=== PATIENT | male | born 1995 | race Caucasian/White ===

== ENCOUNTER 2024-08-19 09:04 | Emergency (ER) | payer SELFPAY ==
[2024-08-19 09:07] VITALS: BP 132/83
[2024-08-19] MEDS: TYLENOL 1000 MG PO (10:11)
[2024-08-19] MEDS: ZOFRAN ODT (ORALLY DISINTEGRATING) 4 MG PO (10:11)
--- NOTE | 2024-08-19 10:13 | ED.GENMED ---
History of Present Illness
General
Chief Complaint: Head Injury
Time Seen by Provider: 08/19/24 09:18
History of Present Illness
History of Present Illness:
The patient is a 29-year-old male who presented to the emergency department after experiencing a fall in the shower this morning. The patient reports slipping on conditioner, resulting in a backward fall where his head struck the wall and his neck
hit the edge of the tub. Since the incident, the patient has developed a headache and neck pain. The headache is also associated with sensitivity to light and sound. There is no history of previous concussions. He reports aching pain radiating
bilaterally down his arms to the wrists, although it is not described as numbness or tingling. The patient denies any back pain. The patient is able to move his neck without tenderness along the midline, but reports that lateral neck pain and spasms
are increasingly uncomfortable.
Phy Exam
Physical Exam
Physical Exam:
GENERAL: no acute distress
HEENT: atraumatic, extraocular muscles intact, no signs of entrapment, dentition intact, no other obvious trauma
NECK: no midline tenderness, normal range of motion, left-sided paracervical tenderness NEXUS criteria negative, no other obvious trauma
BACK: no midline tenderness, no other obvious trauma
CHEST: no tenderness, no flail segment, no subcutaneous emphysema, no other obvious trauma
LUNGS: clear to auscultation bilaterally
CARDIOVASCULAR: regular rate and rhythm
ABDOMEN: soft, non-tender, no masses, no other obvious trauma
PELVIS: stable, no obvious injury
EXTREMITIES: moving all extremities, distal pulses intact, no other obvious trauma
NEUROLOGIC: awake, alert x 3, no focal deficits
Course
Orders/Labs/Results
Orders:
Orders
08/19/24 09:12
CT Head W/o Iv Contrast Urgent
Comment:
Reason For Exam: fall/head strike
08/19/24 10:05
Acetaminophen [Tylenol] 1,000 mg PO NOW STA
Ondansetron Orally Disint [Zofran Odt (Orally Disintegrating)] 4 mg PO NOW STA
Vital Signs
Initial and Last Documented VS:
Initial Vital Signs
Temp Pulse Resp BP Pulse Ox
98.4 F 98 18 132/83 98
08/19/24 09:07 08/19/24 09:07 08/19/24 09:07 08/19/24 09:07 08/19/24 09:07
Last Documented Vital Signs
Temp Pulse Resp BP Pulse Ox
98.4 F 98 18 132/83 98
08/19/24 09:07 08/19/24 09:07 08/19/24 09:07 08/19/24 09:07 08/19/24 09:07
MDM/Problems Addressed
Differential Diagnosis Includes:
21-year-old man presenting to the emergency department after a fall with head strike. Vitals unremarkable exam does show tenderness to the left paracervical spinal muscles. Differential consist of concussion versus cervical sprain versus traumatic
brain injury. History and exam less likely to suggest fracture of the cervical vertebra. CT scan of the head ordered prior to my evaluation. Will pain control. Will give antiemetics as well.
*Critical Care Note
Total Time (30-74mins, 75-104mins- exclusive of procedures): Not Applicable
Update Note
Update Note:
CT scan negative for any acute normality. On reassessment patient significantly better. Will give Motrin. Will give prescription for Flexeril. Patient advised to not work given the possible sedating side effects with the Flexeril. Will
discharge this time with strict return precautions.
ED Attending Note
-
Portions of this chart may have been created with voice recognition software.� Occasional wrong word or��sound alike� substitutions may have occurred due to the inherent limitations of voice recognition software.
Discharge Plan
Departure
Referrals:
UNKNOWN - PT DOES,NOT KNOW [Family Provider]
Interventions
Interventions:
*Risk Screen - Suicide Last Done: 08/19/24 09:07
*General Assessment Last Done: 08/19/24 09:11
*Neglect/Abuse Screening Last Done: 08/19/24 09:07
*ED COVID-19 Vaccine History Last Done: 08/19/24 09:07
ED- Neurological Assessment Last Done: 08/19/24 09:38
ED-Skin Assessment Last Done: 08/19/24 09:38
Discharge Date and Time
Print Language: SCOTTISH
[2024-08-19] MEDS: MOTRIN 800 MG PO (11:39)
== END 2024-08-19 11:44 | disposition home or self-care (01) ==
LOC: EMR 09:04
PROVIDERS: EMERGENCY PHYSICIAN Student in an Organized Health Care Education/Training Program
DX: S09.90XA Unspecified injury of head, initial encounter (principal); W18.2XXA Fall in (into) shower or empty bathtub, initial encounter
CPT/HCPCS: 99284; 70450

== ENCOUNTER 2024-11-01 11:47 | Emergency (ER) | payer BC, SELFPAY ==
[2024-11-01 11:49] VITALS: BP 127/84
--- NOTE | 2024-11-01 12:32 | ED.GENMED ---
History of Present Illness
General
Chief Complaint: Headache
Source: patient
Exam Limitations: none
Time Seen by Provider: 11/01/24 12:08
Nursing documentation reviewed up to this point in time: agreed with
History of Present Illness
History of Present Illness:
Patient is a healthy 29-year-old male who presents to the emergency department for evaluation of headache. Patient reports constant left-sided headache since . He noticed a dull headache on morning when he woke up which
progressively worsened throughout the day. Describes pain throughout his entire left side of his head radiating down into his left neck. It has woken him up from sleep multiple times over the past few days. He reports photophobia however denies
any fever, diplopia, dizziness/lightheadedness. No URI symptoms including cough or sore throat. No recent falls or trauma. No recent bug bites or rashes.
Patient been taking Tylenol and Motrin at home with minimal relief in symptoms.
Given persistence of headache and no history of similar�patient presents to the emergency department further evaluation.
Review of Systems
Review of Systems
Allergies reviewed?: Yes
All Other Systems: ROS reviewed and negative except as documented in HPI and ROS
Phy Exam
Physical Exam
Physical Exam:
Vitals: Patient's vital signs are stable. Afebrile
General: Patient is uncomfortable appearing with eyes closed on initial evaluation.
Skin: Warm and dry, no rashes or lesions
Head: Normocephalic, atraumatic
Eyes: Sclera nonicteric. EOMs intact. Pupils equal round reactive to light bilaterally. No nystagmus.
Throat: Protecting airway
Neck: Normal ROM, no cervical spine tenderness, no meningismus
Cardiac: Regular rate and rhythm, no murmurs.
Pulm: Normal respiratory effort, no wheezes, rales, rhonchi heard on exam
.
Abdomen: No abdominal tenderness.
Extremities: No evidence of cyanosis or edema. Strength 5/5 in bilateral upper and lower extremities with normal sensation
Neuro: AAOx3. CN II-XII grossly intact. No facial droop or asymmetry. Steady gait. Normal finger-nose. No focal neurologic deficits.
Psychiatric: Normal affect.
Course
Orders/Labs/Results
Orders:
Orders
11/01/24 12:23
CT Head W/o Iv Contrast Urgent
Comment:
Reason For Exam: headache
0.9% Sodium Chloride 1000 ml [Nss] 1,000 ml IV BOLUS
Diphenhydramine [Benadryl] 25 mg IV NOW STA
Ketorolac [Toradol] 15 mg IV NOW STA
Metoclopramide [Reglan] 10 mg IV NOW STA
11/01/24 12:45
COVID-19 Antigen Urgent
Source: Nasal Swab
Complete Blood Count/With Diff Urgent
Comprehensive Metabolic Panel Urgent
11/01/24 15:27
Acetaminophen [Tylenol] 650 mg PO NOW STA
11/01/24 12:45
11/01/24 12:45
Vital Signs
Initial and Last Documented VS:
Initial Vital Signs
Temp Pulse Resp BP Pulse Ox
98.8 F 92 17 127/84 99
11/01/24 11:49 11/01/24 11:49 11/01/24 11:49 11/01/24 11:49 11/01/24 11:49
Last Documented Vital Signs
Temp Pulse Resp BP Pulse Ox
98.8 F 92 17 127/84 99
11/01/24 11:49 11/01/24 11:49 11/01/24 11:49 11/01/24 11:49 11/01/24 12:32
MDM/Problems Addressed
Differential Diagnosis Includes:
Not limited to: Tension headache, migraine headache, sinusitis, cluster headache, viral illness, acute dehydration, intracranial mass, etc.
MDM/Problems Addressed:
29 year-old male presenting with three days of persistent left-sided headache associated w/ photophobia. No vomiting, fever, URI symptoms. No history of recent trauma. No history of similar headaches. Vitals and physical exam as above. Patient
appears uncomfortable due to pain however, is neurologically intact w/ normal cerebellar exam.
Differential broad. Symptoms do seem consistent with migraine headache. Other considerations include tension headache, viral illness, dehydration, etc. Less likely intracerebral hemorrhage or intracranial mass.
Will check labs, viral studies, give migraine cocktail. Shared decision-making utilized with patient regarding CT scan. After discussion, will proceed with CT scan, given severity and persistence of headache.
Update: Labs without clinically significant abnormalities. Viral studies negative. On reassessment � patient does have significant improvement in symptoms following migraine cocktail and IV fluids. CT pending.
Update: CT without acute findings. Patient states headache/neck pain are essentially gone. He appears much more comfortable in comparison to arrival to ED.
No evidence of intracranial emergency. Ultimately do suspect migraine headache. He has very minimal lingering dull pain will give Tylenol however feel stable for discharge home with outpatient management and primary care follow-up. Return
precautions discussed. Patient comfortable with plan.
Chronic conditions affecting care:
N/A
Acute Exacerbation and/or Progression of Chronic Illness:
N/A
*Radiology
Radiology exam reviewed: preliminary read by ED provider (Head CT reviewed by me-no acute abnormalities) and radiology read reviewed
*Pulse Oximetry
SaO2: 99
Oxygen Mode of Delivery: Room air
Patient hypoxic: no
*EKG
Interpreted by ED Provider?: NA
*Research Consultant Interpretation
Rate: Research Consultant- N/A
*Critical Care Note
Total Time (30-74mins, 75-104mins- exclusive of procedures): Not Applicable
ED Attending Note
-
Portions of this chart may have been created with voice recognition software.� Occasional wrong word or��sound alike� substitutions may have occurred due to the inherent limitations of voice recognition software.
Discharge Plan
Departure
Patient Disposition: Home (Routine Discharge)
Date of Disposition: 11/01/24
Time of Disposition: 16:03
Patient with high blood pressure during this ER visit?: Yes
Condition: Good
Discharge Problem:
Headache
Instructions: Headache, Adult (DC), BLOOD PRESSURE
Prescriptions:
No Action
cyclobenzaprine 5 mg tablet
5 mg PO BID Qty: 14 0RF
Referrals:
NONE,* [Family Provider, Internal Medicine]
Activity Restrictions/Additional Instructions:
RETURN TO THE EMERGENCY DEPARTMENT WITH ANY FEVER, SEVERE HEADACHE/NECK PAIN, PERSISTENT DIZZINESS OR LIGHTHEADEDNESS, VISUAL CHANGES, CHANGES IN MENTAL STATUS, WORSENING IN CURRENT SYMPTOMS, OR ANY OTHER CONCERNS
- As discussed�your labs and head CT showed no acute abnormalities in the emergency department.
- For support stay well-hydrated at home. Take Tylenol and/or Motrin as needed for pain.
- I will send her information to her primary care schedule to help you establish care. Please do follow-up with a primary care physician for further evaluation/to ensure your symptoms improve. If headache persists/worsens�you may require MRI
imaging
- Monitor your symptoms closely and return to the emergency department with any acute worsening/new symptoms or any other concerns
Interventions
Interventions:
*Risk Screen - Suicide Last Done: 11/01/24 11:50
*General Assessment Last Done: 11/01/24 11:50
*Neglect/Abuse Screening Last Done: 11/01/24 11:50
*ED COVID-19 Vaccine History Last Done: 11/01/24 11:50
*Nursing Disposition Last Done: 11/01/24 16:35
ED- Neurological Assessment Last Done: 11/01/24 12:15
Discharge Date and Time
Discharge Date/Time: 11/01/24 16:36
Print Language: SETSWA[place]
[2024-11-01] MEDS: TORADOL 15 MG IV (12:46)
[2024-11-01] MEDS: REGLAN 10 MG IV (12:47)
[2024-11-01] MEDS: BENADRYL 25 MG IV (12:47)
[2024-11-01] MEDS: NSS 1000 IV (12:47)
[2024-11-01 12:55] LABS: Hematocrit 42.1 % (39.0-52.0); Hemoglobin 15.1 g/dL (13.0-18.0); Mean Corp Hgb Conc. 35.9 g/dL (33.0-37.0); Mean Corpuscular Volume 82.1 fL (80.0-94.0); Nucleated Red Blood Cells % 0 % (-); Platelet Count 309 10^3/uL (130-400); Red Cell Dist. Width 11.7 % (11.5-14.5)
[2024-11-01 13:14] LABS: COVID-19 Antigen Negative (Negative)
[2024-11-01 13:19] LABS: ALT (SGPT) 19 U/L (0-50); AST (SGOT) 18 U/L (17-59); Albumin 5.0 g/dl (3.5-5.0); Alkaline Phosphatase 39 U/L (38-126); Blood Urea Nitrogen 13 mg/dl (9-20); Calcium 9.8 mg/dl (8.4-10.2); Carbon Dioxide 28 mmol/L (22-30); Chloride 104 mmol/L (98-107); Glucose 82 mg/dl (70-99); Potassium 4.5 mmol/L (3.5-5.1); Sodium 140 mmol/L (135-145); Total Protein 7.3 g/dl (6.3-8.2); eGFR > 60.00
[2024-11-01] MEDS: TYLENOL 650 MG PO (16:09)
== END 2024-11-01 16:36 | disposition home or self-care (01) ==
LOC: EMR 11:47
PROVIDERS: Physician Assistant; EMERGENCY PHYSICIAN Emergency Medicine
DX: R51.9 Headache, unspecified (principal)
CPT/HCPCS: 99284; 96374; 96375 ×2; 96361; 70450; 80053; 85025; 87811